=== PATIENT | female | born 1995 | race Caucasian/White ===

== ENCOUNTER → 2023-09-07 15:25 | Outpatient (REF) | payer BC, SELFPAY | LOC: PNTC 15:25 | PROVIDERS: ATTENDING PHYSICIAN Obstetrics & Gynecology | DX: Z36.88 Encounter for antenatal screening for fetal macrosomia (principal) | CPT/HCPCS: 76816 ==

== ENCOUNTER 2023-09-25 01:43 | Inpatient (IN) | payer BC, SELFPAY ==
[2023-09-25 02:17] VITALS: BP 120/83; BMI 27.8
[2023-09-25] MEDS: LR 1000 IV ×2 (02:30→02:32)
[2023-09-25 02:46] LABS: % Basophils 0.2 % (0-2); % Eosinophils 0.9 % (0-6); % Lymphocytes 21.6 % (20.5-51.1); % Monocytes 7.7 % (1.7-9.3); % Neutrophils 68.6 % (42.2-75.2); Absolute Eosinophils 0.1 10^3/uL (0-0.7); Absolute Immature Granulocytes 0.1 10^3/uL (0-0.05); Absolute Lymphocytes 2.8 10^3/uL (1.2-3.4); Absolute Neutrophils 8.7 10^3/uL (1.4-6.5); Hematocrit 33.6 % (37.0-47.0); Hemoglobin 10.9 g/dL (12.0-16.0); Mean Corp Hgb Conc. 32.4 g/dL (33.0-37.0); Mean Corpuscular Volume 89.4 fL (81.0-99.0); Mean Platelet Volume 10.2 fL (7.4-10.4); Nucleated Red Blood Cells % 0 %; Platelet Count 208 10^3/uL (130-400); Red Blood Cell Count 3.76 10^6/uL (4.20-5.40); Red Cell Dist. Width 12.7 % (11.5-14.5); White Blood Cell Count 12.8 10^3/uL (4.8-10.8)
[2023-09-25] MEDS: MORPHINE SULFATE 2 MG IV (04:51)
[2023-09-25] MEDS: PHENERGAN 50.5 MG IV (04:51)
[2023-09-25] MEDS: SUBLIMAZE 100 MCG EPIDURAL (06:51)
[2023-09-25] MEDS: FENTANYL/BUPIVACAINE 100 EPIDURAL ×2 (06:52→14:31)
[2023-09-25] MEDS: TUMS EX (EXTRA STRENGTH) CHEWABLE 2 TABLET PO (18:15)
[2023-09-25] MEDS: PITOCIN 30 UNITS/NSS 500 ML IV (18:45)
[2023-09-25] MEDS: MOTRIN 600 MG PO (22:23)
[2023-09-26 04:41] LABS: Hematocrit 25.4 % (37.0-47.0); Hemoglobin 8.8 g/dL (12.0-16.0)
[2023-09-26] MEDS: MOTRIN 600 MG PO ×3 (06:51→20:22)
[2023-09-26] MEDS: FEOSOL 325 MG PO ×2 (09:06→20:23)
[2023-09-26] MEDS: SENOKOT-S 1 TABLET PO (09:06)
[2023-09-26] MEDS: TYLENOL 650 MG PO ×2 (13:11→20:22)
[2023-09-26 14:53] LABS: Syphilis/T. pallidum Ab Reflex Negative (Negative)
--- NOTE | 2023-09-27 04:46 | DOWNTIME ---
There was a [employer] Downtime on 09/27/2023 from 0100 to 09/27/2023 at 0439. Downtime documentation of patient's care, including medication administrations, has been reconciled in the electronic record per guidelines. Refer to the
patient's paper chart under the miscellaneous tab to see printed paper medication records and downtime forms.
[2023-09-27] MEDS: MOTRIN 600 MG PO (05:09)
[2023-09-27] MEDS: TYLENOL 650 MG PO (05:09)
[2023-09-27] MEDS: SENOKOT-S 1 TABLET PO (08:48)
[2023-09-27] MEDS: FEOSOL 325 MG PO (08:48)
== END 2023-09-27 12:18 | disposition home or self-care (01) | DRG 807 ==
LOC: LDRP 01:43
PROVIDERS: Obstetrics & Gynecology; ADMITTING PHYSICIAN Obstetrics & Gynecology
PROC: 0UQMXZZ Repair Vulva, External Approach (ICD-10-PCS; 2023-09-25)
PROC: 6A550ZT Pheresis of Cord Blood Stem Cells, Single (ICD-10-PCS; 2023-09-25)
PROC: 10907ZC Drainage of Amniotic Fluid, Therapeutic from Products of Conception, Via Natural or Artificial Opening (ICD-10-PCS; 2023-09-25)
PROC: 10E0XZZ Delivery of Products of Conception, External Approach (ICD-10-PCS; 2023-09-25)
DX: O48.0 Post-term pregnancy (principal); Z37.0 Single live birth; Z3A.40 40 weeks gestation of pregnancy; O71.82 Other specified trauma to perineum and vulva; Z80.3 Family history of malignant neoplasm of breast; Z83.3 Family history of diabetes mellitus; O99.02 Anemia complicating childbirth; D64.9 Anemia, unspecified
CPT/HCPCS: 36415; 85014; 85018; 85025; 86780; 86850; 86900; 86901

== ENCOUNTER 2024-05-27 21:38 | Emergency (ER) | payer BC, SELFPAY ==
[2024-05-27 21:40] VITALS: BP 87/58
[2024-05-27] MEDS: NSS 1000 IV ×2 (21:55→22:57)
[2024-05-27] MEDS: ZOFRAN 4 MG IV (21:59)
[2024-05-27 22:05] LABS: % Basophils 0.4 % (0-2); % Eosinophils 0.7 % (0-6); % Immature Granulocytes 0.4 % (0-0.5); % Monocytes 5.4 % (1.7-9.3); % Neutrophils 85.1 % (42.2-75.2); Absolute Basophils 0.1 10^3/uL (0-0.2); Absolute Eosinophils 0.2 10^3/uL (0-0.7); Absolute Immature Granulocytes 0.1 10^3/uL (0-0.05); Absolute Lymphocytes 1.8 10^3/uL (1.2-3.4); Absolute Monocytes 1.2 10^3/uL (0.1-0.6); Absolute Neutrophils 19.3 10^3/uL (1.4-6.5); Hematocrit 45.8 % (37.0-47.0); Mean Corp Hgb Conc. 34.9 g/dL (33.0-37.0); Mean Corpuscular Volume 88.8 fL (81.0-99.0); Mean Platelet Volume 9.8 fL (7.4-10.4); Nucleated Red Blood Cells % 0 %; Platelet Count 287 10^3/uL (130-400); Red Blood Cell Count 5.16 10^6/uL (4.20-5.40); Red Cell Dist. Width 12.4 % (11.5-14.5); White Blood Cell Count 22.6 10^3/uL (4.8-10.8)
[2024-05-27 22:17] LABS: HCG, Serum Qualitative Screen Negative
[2024-05-27 22:19] VITALS: BMI 25.1
[2024-05-27 22:23] LABS: ALT (SGPT) 18 U/L (0-35); AST (SGOT) 26 U/L (14-36); Albumin 5.8 g/dl (3.5-5.0); Alkaline Phosphatase 74 U/L (38-126); Blood Urea Nitrogen 13 mg/dl (7-17); Calcium 10.7 mg/dl (8.4-10.2); Carbon Dioxide 23 mmol/L (22-30); Chloride 98 mmol/L (98-107); Estimated Creatinine Clearance 74 ml/min; Glucose 188 mg/dl (70-99); Sodium 136 mmol/L (135-145); Total Bilirubin 0.8 mg/dl (0.2-1.3); Total Protein 8.9 g/dl (6.3-8.2); eGFR > 60.00
[2024-05-27 22:45] VITALS: BP 88/59
--- NOTE | 2024-05-27 23:49 | ED.GENMED ---
History of Present Illness
General
Chief Complaint: Abdominal Pain
Time Seen by Provider: 05/27/24 22:20
History of Present Illness
History of Present Illness:
29-year-old otherwise healthy female presents to the emergency department for evaluation of sudden onset vomiting and diarrhea beginning this evening. Unable to tolerate p.o. food or fluids. Known exposure to norovirus. No significant abdominal
pain at this time
Review of Systems
Review of Systems
Allergies reviewed?: Yes
All Other Systems: ROS reviewed and negative except as documented in HPI and ROS
Phy Exam
Physical Exam
Physical Exam:
GEN: Well appearing, NAD, WDWN
HEENT: Oral mucosa moist, no scleral icterus
Cardiac: Regular rate
Lung: No respiratory distress, no tachypnea
MSK: No gross deformity or injuries
Skin: Good color, no pallor or jaundice, no rashes
Neuro: AO x3, moves all extremities freely
Psych: Calm, cooperative
Course
Orders/Labs/Results
Orders:
Orders
05/27/24 21:46
0.9% Sodium Chloride 1000 ml [Nss] 1,000 ml IV BOLUS
Test Result ONCE
05/27/24 21:54
CMP [Comprehensive Metabolic Panel] Urgent
Complete Blood Count/With Diff Urgent
HCG, Serum Qualitative Screen Urgent
05/27/24 21:57
Ondansetron Injectable [Zofran] 4 mg IV NOW STA
05/27/24 22:38
0.9% Sodium Chloride 1000 ml [Nss] 1,000 ml IV BOLUS
Abnormal Lab Results
05/27/24
21:54
WBC 22.6 H 10^3/uL
(4.8-10.8)
Abs Immat Gran (auto) 0.1 H 10^3/uL
(0-0.05)
Absolute Neuts (auto) 19.3 H 10^3/uL
(1.4-6.5)
Absolute Monos (auto) 1.2 H 10^3/uL
(0.1-0.6)
Neutrophils % 85.1 H %
(42.2-75.2)
Lymphocytes % 8.0 L %
(20.5-51.1)
Glucose 188 H mg/dl
(70-99)
Calcium 10.7 H mg/dl
(8.4-10.2)
Total Protein 8.9 H g/dl
(6.3-8.2)
Albumin 5.8 H g/dl
(3.5-5.0)
05/27/24 21:54
05/27/24 21:54
Vital Signs
Initial and Last Documented VS:
Initial Vital Signs
Temp Pulse Resp BP Pulse Ox
97.7 F 91 18 87/58 97
05/27/24 21:40 05/27/24 21:40 05/27/24 21:40 05/27/24 21:40 05/27/24 21:40
Last Documented Vital Signs
Temp Pulse Resp BP Pulse Ox
97.7 F 90 18 88/59 98
05/27/24 21:40 05/27/24 22:45 05/27/24 22:45 05/27/24 22:45 05/27/24 22:45
MDM/Problems Addressed
MDM/Problems Addressed:
Significant leukocytosis likely on the basis of stress reaction and hypovolemia. Given2 L normal saline and he was able to tolerate p.o. fluids at time of discharge. Will prescribe antiemetics, discussed supportive care. No indication for imaging
*Critical Care Note
Total Time (30-74mins, 75-104mins- exclusive of procedures): Not Applicable
ED Attending Note
-
Portions of this chart may have been created with voice recognition software.� Occasional wrong word or��sound alike� substitutions may have occurred due to the inherent limitations of voice recognition software.
Discharge Plan
Departure
Patient Disposition: Home (Routine Discharge)
Date of Disposition: 05/27/24
Time of Disposition: 23:49
Patient with high blood pressure during this ER visit?: No
Discharge Problem:
Gastroenteritis
Instructions: Nausea and Vomiting, Adult (DC)
Prescriptions:
New
ondansetron 4 mg tablet,disintegrating
4 mg PO TIDPRN PRN (Reason: nausea/vomiting) Qty: 10 0RF
Referrals:
NONE,* [Family Provider] -
Interventions
Interventions:
*Risk Screen - Suicide Last Done: 05/27/24 22:37
*General Assessment Last Done: 05/27/24 22:37
*Neglect/Abuse Screening Last Done: 05/27/24 22:37
ED- Fall Risk Assessment Last Done: 05/27/24 22:59
*ED COVID-19 Vaccine History Last Done: 05/27/24 22:37
*Nursing Disposition Last Done: 05/27/24 23:56
PA-Egukcz-Wftxooxzmv Assessment Last Done: 05/27/24 22:59
Discharge Date and Time
Print Language: SAMOAN
== END 2024-05-28 00:22 | disposition home or self-care (01) ==
LOC: EMR 21:38
PROVIDERS: Emergency Medicine; EMERGENCY PHYSICIAN Emergency Medicine
DX: R11.2 Nausea with vomiting, unspecified (principal); R19.7 Diarrhea, unspecified
CPT/HCPCS: 99283; 96374; 96361; 80053; 84703; 85025

== ENCOUNTER → 2024-10-21 10:01 | Outpatient (REF) | payer BC, SELFPAY | LOC: WDC 10:01 | PROVIDERS: ATTENDING PHYSICIAN Advanced Practice Midwife | DX: N60.12 Diffuse cystic mastopathy of left breast (principal); N63.23 Unspecified lump in the left breast, lower outer quadrant | CPT/HCPCS: 76642; 77062; 77066 ==

== ENCOUNTER 2025-04-10 20:07 | Emergency (ER) | payer BC, SELFPAY ==
[2025-04-10 20:10] VITALS: BP 150/97
[2025-04-10 20:51] LABS: Hematocrit 40.7 % (37.0-47.0); Hemoglobin 14.3 g/dL (12.0-16.0); Mean Corp Hgb Conc. 35.1 g/dL (33.0-37.0); Mean Corpuscular Volume 91.7 fL (81.0-99.0); Nucleated Red Blood Cells % 0 %; Platelet Count 273 10^3/uL (130-400); Red Cell Dist. Width 11.9 % (11.5-14.5)
[2025-04-10 21:15] LABS: ALT (SGPT) 14 U/L (0-35); AST (SGOT) 17 U/L (14-36); Albumin 5.2 g/dl (3.5-5.0); Alkaline Phosphatase 41 U/L (38-126); Blood Urea Nitrogen 6 mg/dl (7-17); Calcium 10.2 mg/dl (8.4-10.2); Carbon Dioxide 23 mmol/L (22-30); Chloride 102 mmol/L (98-107); Glucose 145 mg/dl (70-99); Potassium 3.8 mmol/L (3.5-5.1); Sodium 138 mmol/L (135-145); Total Protein 7.8 g/dl (6.3-8.2); eGFR > 60.00
[2025-04-10 22:20] VITALS: BP 131/78
--- NOTE | 2025-04-10 22:25 | ED.GENMED ---
History of Present Illness
General
Chief Complaint: Skin Problem
Source: patient
Exam Limitations: none
Time Seen by Provider: 04/10/25 22:05
Nursing documentation reviewed up to this point in time: agreed with
History of Present Illness
History of Present Illness:
Note:
CHIEF COMPLAINT(S)
Lump in neck area.
HISTORY OF PRESENT ILLNESS
The patient is a 30-year-old female who presented with concerns about a lump she noticed in her neck area. She first noticed this lump earlier today. There have been no associated symptoms such as fever, chills, breathing difficulties, or dental
pain. The patient described the area as a 'bumpy area,' uncertain whether it represents a lymph node or a mass. She sought medical advice from her primary care physician, which led to a scheduled ultrasound for further evaluation. The patient was
reassured by normal labs, indicating no sign of infection or malignancy such as lymphoma. The lump is described as mobile, resembling a 'pea under a sheet,' suggesting it may be a lymph node, lipoma, or a cyst. There has been no recent sore throat
or trouble swallowing. The patient does not smoke.
SOCIAL HISTORY
The patient does not smoke.
PHYSICAL EXAM
General: Alert, no acute distress.
Skin: Warm, dry.
Head: Normocephalic, atraumatic.
Neck: Supple, trachea midline, noted palpable mobile lump in the neck area.
Eye Ears, nose, mouth and throat: Oral mucosa moist.
Cardiovascular: Normal peripheral perfusion, No edema.
Respiratory: Respirations are non-labored.
Gastrointestinal : Abdomen nondistended.
Back: Normal range of motion, Normal alignment.
Musculoskeletal: Normal ROM, normal strength.
Neurological: Alert and oriented to person, place, time, and situation, No focal neurological deficit observed.
Psychiatric: Cooperative, appropriate mood & affect.
PLAN
The patient was advised to keep the upcoming appointment for the ultrasound to further evaluate the lump. Reassurance was given due to normal laboratory results indicating no immediate concern for infection or cancer.
DIFFERENTIAL DIAGNOSIS
The Differential Diagnosis includes, in no particular order and is not limited to:
1. Reactive lymphadenopathy
2. Lipoma
3. Cyst
4. Infectious mononucleosis
5. Dental infection
6. Thyroid nodule
7. Salivary gland disorder
8. Sebaceous cyst
9. Benign lymphoid hyperplasia
10. Branchial cleft cyst
Disposition:
SUMMARY OF ENCOUNTER
The patient is a 30-year-old female who presented with concerns about a new lump she noticed on the left posterior neck, along with a second bump slightly higher on the neck and one under her chin, the latter two of which have been present for some
time. She sought evaluation after her family doctor advised a further assessment via ultrasound scheduled for April 22. The patient reports no recent illnesses, fever, chills, nausea, or dental pain. Laboratory results were within normal
limits. In the emergency department, reassurance was provided based on these normal lab results and lack of concerning symptoms.
DISPOSITION
The patient was discharged home.
ASSESSMENT
The presentation is consistent with potential benign lymphoid hyperplasia, reactive lymphadenopathy, or possibly a benign cystic formation, such as a lipoma or sebaceous cyst.
PLAN
The patient will keep her scheduled appointment for the ultrasound to further evaluate the lumps.
PATIENT EDUCATION AND COUNSELING
The patient was educated regarding the possible benign nature of the lumps, the importance of attending the scheduled ultrasound for definitive assessment, and advised to monitor for any new symptoms such as changes in size, tenderness, or
accompanying systemic symptoms like fever.
FOLLOW-UP INSTRUCTIONS
The patient is instructed to proceed with her ultrasound appointment on April 22 as scheduled and follow up with her primary care physician to discuss the results and further management.
MEDICATION RECONCILIATION
No medications were administered or prescribed during the visit.
MEDICAL DECISION MAKING
1. Number and Complexity of Problems Addressed:
Chronic conditions affecting care include reactive lymphadenopathy, lipoma, cyst, and benign lymphoid hyperplasia.
2. Data:
Category 1:
Lab tests indicating normal results have been reviewed.
Category 2:
N/A
Category 3:
Discussion of the management plan was guided by prior consulting with the patient�s family doctor, leading to a scheduled ultrasound for further evaluation.
-Risk:
Consideration of Admission/Observation: Escalation of care including admission/observation was considered given the complexity and risk of the patients presenting complaint, exam findings, and/or their underlying comorbidities. However, ultimately I
feel the patient is safe for outpatient management with close follow up. Reasoning: Work-up reassuring, does not reveal any acute life/organ threatening processes, patients symptoms well controlled upon reevaluation, reexamination is reassuring,
vitals are stable, patient agreeable with discharge, reliable for follow-up.
DIAGNOSIS
1. 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
2. Reactive lymphadenopathy - ICD-10: R59.0
3. Lipoma - ICD-10: D17.39
4. Sebaceous cyst - ICD-10: L72.3
Phy Exam
Physical Exam
Physical Exam:
.
Course
Orders/Labs/Results
Orders:
Orders
04/10/25 20:41
Complete Blood Count/With Diff Urgent
Comprehensive Metabolic Panel Urgent
Monotest Urgent
Comment: ADD ON
04/10/25 22:31
Add On- LAB Urgent
Tests Added?: monospot
Abnormal Lab Results
04/10/25
20:41
MCH 32.2 H pg
(27.0-31.0)
BUN 6 L mg/dl
(7-17)
Glucose 145 H mg/dl
(70-99)
Albumin 5.2 H g/dl
(3.5-5.0)
04/10/25 20:41
04/10/25 20:41
Vital Signs
Initial and Last Documented VS:
Initial Vital Signs
Temp Pulse Resp BP
98.1 F 105 18 150/97
04/10/25 20:10 04/10/25 20:10 04/10/25 20:10 04/10/25 20:10
Last Documented Vital Signs
Temp Pulse Resp BP Pulse Ox
98.1 F 96 15 131/78 96
04/10/25 20:10 04/10/25 22:27 04/10/25 22:30 04/10/25 22:20 04/10/25 22:20
*Pulse Oximetry
Oxygen Mode of Delivery: Room air
Patient hypoxic: no
*Critical Care Note
Total Time (30-74mins, 75-104mins- exclusive of procedures): Not Applicable
ED Attending Note
-
Portions of this chart may have been created with voice recognition software.� Occasional wrong word or��sound alike� substitutions may have occurred due to the inherent limitations of voice recognition software.
Discharge Plan
Departure
Patient Disposition: Home (Routine Discharge)
Date of Disposition: 04/10/25
Time of Disposition: 22:30
Patient with high blood pressure during this ER visit?: Yes
Discharge Problem:
Lymphadenopathy
Instructions: Swollen lymph nodes in adults, BLOOD PRESSURE
Prescriptions:
No Action
ondansetron 4 mg tablet,disintegrating
4 mg PO TIDPRN PRN (Reason: nausea/vomiting) Qty: 10 0RF
Referrals:
Ayana Segovia NP [Family Provider, Neurology]
Interventions
Interventions:
*Risk Screen - Suicide Last Done: 04/10/25 20:12
*General Assessment Last Done: 04/10/25 22:35
*Neglect/Abuse Screening Last Done: 04/10/25 20:12
*ED- Fall Risk Assessment Last Done: 04/10/25 22:35
*ED COVID-19 Vaccine History Last Done: 04/10/25 21:17
*ED Influenza Vaccine History Last Done: 04/10/25 21:17
*Nursing Disposition Last Done: 04/10/25 22:35
ED-Skin Assessment Last Done: 04/10/25 22:35
Discharge Date and Time
Discharge Date/Time: 04/10/25 22:35
Print Language: DUTCH
== END 2025-04-10 22:35 | disposition home or self-care (01) ==
LOC: EMR 20:07
PROVIDERS: Emergency Medicine; EMERGENCY PHYSICIAN Student in an Organized Health Care Education/Training Program; FAMILY PHYSICIAN Nurse Practitioner Family
DX: R59.0 Localized enlarged lymph nodes (principal)
CPT/HCPCS: 99283; 80053; 85025; 86308

== ENCOUNTER → 2025-04-22 07:37 | Outpatient (REF) | payer BC, SELFPAY | LOC: HWRAD 07:37 | PROVIDERS: ATTENDING PHYSICIAN Nurse Practitioner Family | DX: R59.0 Localized enlarged lymph nodes (principal) | CPT/HCPCS: 76536 ==